=== PATIENT | female | born 1930 | race Caucasian/White ===

== ENCOUNTER → 2017-07-07 | Outpatient (CLI) | payer MEDICARE, OTHER ==
[~2017-07-07] MED LIST: OMNIPAQUE 350 MG/ML, 100ML BOTTLE ONE
== END | disposition home or self-care (01) ==
LOC: CFH 09:47
PROVIDERS: ATTEND Surgery
DX: K43.9 Ventral hernia without obstruction or gangrene (principal); K76.0 Fatty (change of) liver, not elsewhere classified; M51.34 Other intervertebral disc degeneration, thoracic region; M51.36 Other intervertebral disc degeneration, lumbar region
CPT/HCPCS: 74177; Q9967

== ENCOUNTER 2018-02-03 08:51 | Day surgery (SDC) | payer MEDICARE, OTHER ==
[~2018-02-03] VITALS: Ht 160 cm; Wt 61.3 kg
[~2018-02-03 08:51] MED LIST changes: +BUPIVACAINE/PF-EPI 0.5% 1:200K ONE; +DEXAMETHASONE 4 MG/ML, 1ML ONE; +DORZ10DR7 EACHEYE; +MULT-516 PO; -OMNIPAQUE 350 MG/ML, 100ML BOTTLE ONE
[2018-02-03 09:46] VITALS: BP 175/80
[2018-02-03] MEDS ORDERED: FENTANYL PF 100 MCG/2ML ONE (09:52)
[2018-02-03] MEDS ORDERED: PROPOFOL 10 MG/ML, 20ML ONE (09:52)
[2018-02-03] MEDS ORDERED: SUCCINYLCHOLINE 20 MG/ML, 10ML ONE (09:52)
[2018-02-03] MEDS ORDERED: ROCURONIUM 10MG/ML,5ML ONE (09:53)
[2018-02-03] MEDS ORDERED: SCOPOLAMINE PATCH, 1.5MG PATCH.TD72 TD ONE (10:00)
[2018-02-03] MEDS ORDERED: GABAPENTIN 300 MG CAPSULE PO ONE (10:00)
[2018-02-03] MEDS ORDERED: LACTATED RINGERS 1,000 ML IV SCH (10:00)
[2018-02-03] MEDS ORDERED: ONDANSETRON ODT 8 MG PO ONE (10:00)
[2018-02-03] MEDS ORDERED: ACETAMINOPHEN 500 MG TABLET PO ONE (10:00)
[2018-02-03] MEDS ORDERED: NEOSTIGMINE 1 MG/ML, 10ML ONE (10:44)
[2018-02-03] MEDS ORDERED: GLYCOPYRROLATE 0.4 MG/2 ML, 2ML ONE (10:44)
[2018-02-03] MEDS ORDERED: ONDANSETRON 2MG/ML, 2ML IV PRN (11:00)
[2018-02-03] MEDS ORDERED: ONDANSETRON ODT 8 MG PO PRN (11:00)
[2018-02-03] MEDS ORDERED: ALBUTEROL SULFATE 2.5 MG/3 ML NPPB PRN (11:00)
[2018-02-03] MEDS ORDERED: MORPHINE SULFATE 4 MG/ML, 1ML IVPush PRN (11:00)
[2018-02-03] MEDS ORDERED: hydrALAzine 20 MG/ML, 1ML IV PRN (11:00)
[2018-02-03] MEDS ORDERED: MIDAZOLAM 1 MG/ML, 2ML IV PRN (11:00)
[2018-02-03] MEDS ORDERED: PROMETHAZINE 25 MG SUPP PR PRN (11:00)
[2018-02-03] MEDS ORDERED: FENTANYL PF 100 MCG/2ML IV PRN (11:00)
[2018-02-03] MEDS ORDERED: OXYcodone 5 MG/5 ML ORAL.SOL UDC PO PRN (11:00)
[2018-02-03] MEDS ORDERED: LABETALOL 5MG/ML, 20ML IV PRN (11:00)
[2018-02-03] MEDS ORDERED: MEPERIDINE/PF 25MG/0.5ML IVPush PRN (11:00)
== END 2018-02-03 14:10 ==
LOC: OUT 08:51
PROVIDERS: ATTEND Surgery
DX: K43.9 Ventral hernia without obstruction or gangrene (principal); I10 Essential (primary) hypertension; Z98.890 Other specified postprocedural states
CPT/HCPCS: 49652; 93005; C1781; J0330; J1100; J2704; J2710; J3010; J7120; Q0162